=== PATIENT | male | born 1980 | race Two or more races ===

== ENCOUNTER 2017-10-02 05:13 | Emergency (ER) | payer SELFPAY ==
[~2017-10-02] VITALS: Ht 172.7 cm; Wt 81.6 kg
[2017-10-02 05:24] VITALS: BP 132/76
--- NOTE | 2017-10-02 07:21 | NUR ---
REPORT GIVEN TO HARMAN CARBALLO FOR TALYA
== END 2017-10-02 08:16 | disposition home or self-care (01) ==
LOC: ER 05:14
DX: F10.10 Alcohol abuse, uncomplicated (principal); E11.65 Type 2 diabetes mellitus with hyperglycemia; Y90.9 Presence of alcohol in blood, level not specified; Z60.2 Problems related to living alone
CPT/HCPCS: A4606; Z7610